=== PATIENT | male | born 1980 | race Caucasian/White ===

== ENCOUNTER 2020-09-02 04:27 | Emergency (ER) | payer MEDICAID ==
--- NOTE | 2020-09-02 05:21 | EDM.PDOC ---
ED HPI GENERAL MEDICAL PROBLEM - General Chief Complaint: Chest Pain Stated Complaint: SOB COUGH AND CONGESTION Time Seen by Provider: 09/02/20 05:01 Source of Information: Reports: Patient History Limitations: Reports: No Limitations - History of Present Illness INITIAL COMMENTS - FREE TEXT/NARRATIVE: This is a 40-year-old female. She is going through position from a male to a female. Apparently about an hour prior to coming to the ER awoke with left- sided sharp chest pain and shortness of breath. She states that she has been actually coughing for the last couple of months producing some green phlegm periodically. Had Covid and got out of quarantine middle of July. Had the cough prior to Covid. Dates that she has had 2 heart attacks in the past however her description of these heart attacks and what was done afterwards is suspect since no heart cath was done and only an echocardiogram was done but they stated that there was a small heart attack and it was because of all the stress that she was going through. She is on Lipitor and nitroglycerin. She left all her medicines in [place] and she will be up here through middle of next month. Denies any fever or chills no myalgias no other acute symptoms though she does have a toothache. Left Chest Pain Score (Numeric/FACES): 7 - Related Data Allergies Allergy/AdvReac Type Severity Reaction Status Date / Time erythromycin base Allergy Swelling Verified 09/02/20 04:41 lamotrigine [From Lamictal] Allergy Hives Verified 09/02/20 04:41 Home Meds: Home Meds Acyclovir 1 tab PO DAILY 09/02/20 [History] Aspirin 1 tab PO DAILY 09/02/20 [History] DULoxetine HCl [Cymbalta] 1 tab PO DAILY 09/02/20 [History] Divalproex Sodium [Depakote] 2 tab PO DAILY 09/02/20 [History] Doxycycline [Vibramycin 25 MG/5 ML Susp] 100 mg PO Q12H #20 tab 09/02/20 [Rx] Finasteride 1 tab PO DAILY 09/02/20 [History] Naproxen 1 tab PO ASDIRECTED PRN 09/02/20 [History] Naproxen 500 mg PO BID #14 tablet 09/02/20 [Rx] Nitroglycerin 1 tab SL ASDIRECTED PRN 09/02/20 [History] Progesterone, Micronized [Progesterone] 1 tab PO DAILY 09/02/20 [History] Spironolactone [Aldactone] 1 tab PO DAILY 09/02/20 [History] atorvaSTATin [Lipitor] 1 tab PO DAILY 09/02/20 [History] estradioL [Estradiol] 1 tab PO DAILY 09/02/20 [History] Past Medical History Cardiovascular History: Reports: High Cholesterol, [place] Respiratory History: Reports: Asthma Gastrointestinal History: Reports: Other (See Below) Other Gastrointestinal History: diverticulitis Oncologic (Cancer) History: Reports: Colon - Infectious Disease History Infectious Disease History: Reports: Novel Coronavirus - Past Surgical History HEENT Surgical History: Reports: Tonsillectomy GI Surgical History: Reports: Appendectomy Social & Family History - Tobacco Use Tobacco Use Status *Q: Current Every Day Tobacco User Years of Tobacco use: 20 Packs/Tins Daily: 0.3 - Caffeine Use Caffeine Use: Reports: Coffee - Recreational Drug Use Recreational Drug Use: Yes Drug Use in Last 12 Months: No ED ROS GENERAL - Review of Systems Review Of Systems: See Below Constitutional: Denies: Fever, Chills HEENT: Reports: Rhinitis Respiratory: Reports: Shortness of Breath, Cough, Sputum Cardiovascular: Reports: Chest Pain Endocrine: Reports: No Symptoms GI/Abdominal: Reports: No Symptoms : Reports: No Symptoms Musculoskeletal: Reports: No Symptoms Skin: Reports: No Symptoms Neurological: Reports: No Symptoms Psychiatric: Reports: No Symptoms Hematologic/Lymphatic: Reports: No Symptoms ED EXAM, GENERAL - Physical Exam Exam: See Below Exam Limited By: No Limitations General Appearance: Alert, WD/WN, No Apparent Distress Eye Exam: Bilateral Eye: Normal Inspection Ears: Normal External Exam, Normal Canal, Normal TMs Nose: Normal Inspection. No: Nasal Drainage, Clear Rhinorrhea Throat/Mouth: Normal Lips, Normal Oropharynx, Normal Voice, No Airway Compromise Head: Normocephalic Neck: Supple Respiratory/Chest: No Respiratory Distress, Lungs Clear, Normal Breath Sounds, Other (Anterior chest is nontender on palpation.) Cardiovascular: Regular Rate, Rhythm, No Murmur, Tachycardia GI/Abdominal: Soft Back Exam: Full Range of Motion Extremities: Normal Inspection, Normal Range of Motion Neurological: Alert, Oriented Psychiatric: Normal Affect, Normal Mood Skin Exam: Warm, Dry Course - Vital Signs Last Recorded V/S: Last Vital Signs Temp 97.5 F 09/02/20 04:36 Pulse 108 H 09/02/20 04:36 Resp 20 09/02/20 04:36 BP 130/77 09/02/20 04:36 Pulse Ox 100 09/02/20 04:36 - Orders/Labs/Meds Orders: Active Orders 24 hr Category Date Time Status Chest 2V [CR] Stat Exams 09/02/20 05:16 Taken Labs: Laboratory Tests 09/02/20 09/02/20 09/02/20 Range/Units 05:41 05:41 05:41 WBC 7.17 (4.23-9.07) K/mm3 RBC 3.78 L (4.63-6.08) M/mm3 Hgb 12.2 L (13.7-17.5) gm/dl Hct 37.8 L (40.1-51.0) % MCV 100.0 H (79.0-92.2) fl MCH 32.3 H (25.7-32.2) pg MCHC 32.3 (32.2-35.5) g/dl RDW Std Deviation 45.1 H (35.1-43.9) fL Plt Count 258 (163-337) K/mm3 MPV 11.3 (9.4-12.3) fl Neut % (Auto) 42.8 (34.0-67.9) % Lymph % (Auto) 36.7 (21.8-53.1) % [place] % (Auto) 9.9 (5.3-12.2) % Eos % (Auto) 10.0 H (0.8-7.0) Baso % (Auto) 0.3 (0.1-1.2) % Neut # (Auto) 3.07 (1.78-5.38) K/mm3 Lymph # (Auto) 2.63 (1.32-3.57) K/mm3 [place] # (Auto) 0.71 (0.30-0.82) K/mm3 Eos # (Auto) 0.72 H (0.04-0.54) K/mm3 Baso # (Auto) 0.02 (0.01-0.08) K/mm3 D-Dimer, Quantitative 0.56 H (0.19-0.50) mg/L Sodium 142 (136-145) mEq/L Potassium 4.1 (3.5-5.1) mEq/L Chloride 106 (98-107) mEq/L Carbon Dioxide 27 (21-32) mEq/L Anion Gap 13.1 (5-15) BUN 24 H (7-18) mg/dL Creatinine 0.9 (0.7-1.3) mg/dL Est Cr Clr Drug Dosing 93.96 mL/min Estimated GFR (MDRD) > 60 (>60) mL/min BUN/Creatinine Ratio 26.7 H (14-18) Glucose 104 (74-106) mg/dL Calcium 9.0 (8.5-10.1) mg/dL Total Bilirubin 0.1 L (0.2-1.0) mg/dL AST 15 (15-37) U/L ALT 20 (16-63) U/L Alkaline Phosphatase 52 (46-116) U/L Troponin I < 0.017 (0.00-0.056) ng/mL Total Protein 6.5 (6.4-8.2) g/dl Albumin 3.1 L (3.4-5.0) g/dl Globulin 3.4 gm/dL Albumin/Globulin Ratio 0.9 L (1-2) - Radiology Interpretation Free Text/Narrative:: Chest x-ray does not show any acute infiltrates or changes. - Re-Assessments/Exams Free Text/Narrative Re-Assessment/Exam: 09/02/20 06:45 Spoke to the patient regarding his blood test results that is cardiac enzyme was essentially normal that his D-dimer was essentially normal so he did not have a heart attack did not have a blood clot and that he has pleurisy from all his chronic coughing and I believe he has a chronic bronchitis which we will treat. I am going to release him from the clinic with a prescription for antibiotics and naproxen. Departure - Departure Time of Disposition: 06:45 Disposition: Home, Self-Care 01 Condition: Good Clinical Impression: Chronic bronchitis, simple, Pleurisy Prescriptions: Naproxen 500 mg PO BID #14 tablet Doxycycline [Vibramycin 25 MG/5 ML Susp] 100 mg PO Q12H #20 tab Instructions: Pleurisy, Chronic Bronchitis, Adult Referrals: PCP,Not In Area [Primary Care Provider] - Forms: ED Department Discharge Additional Instructions: Get the prescriptions filled and start taking the doxycycline twice a day for 10 days, using naproxen twice a day to help with the pleurisy pain, heat to your chest if needed, continue to drink lots of fluids, you may use Robitussin [id number] to help with your cough, I would encourage you to stop smoking because that will contribute to your cough and the bronchitis, just as a recap you did not have a heart attack today nor did you have a pulmonary emboli this is simply an inflammation in your lungs causing sharp pain and it is called toney noe. Return to the ER if needed Sepsis Event Note (ED) - Evaluation Sepsis Screening Result: No Definite Risk - Focused Exam Vital Signs: Vital Signs Temp Pulse Resp BP Pulse Ox 09/02/20 04:36 97.5 F 108 H 20 130/77 100 - My Orders Last 24 Hours: My Active Orders 09/02/20 05:16 Chest 2V [CR] Stat - Assessment/Plan Last 24 Hours: My Active Orders 09/02/20 05:16 Chest 2V [CR] Stat
--- NOTE | 2020-09-02 08:49 | CR ---
Chest: 2 views of the chest were obtained. Comparison: No previous chest imaging is available. Small triangular density noted of the left cardiac apex. Lungs otherwise are clear. Heart size and mediastinum are normal. Bony structures appear within normal limits. Impression: 1. Slight density of the left cardiac apex most likely due to scarring or atelectasis. 2. Nothing acute is otherwise seen. Diagnostic code #2
== END 2020-09-02 07:05 | disposition home or self-care (01) ==
LOC: JD.ED 04:27
DX: J41.0 Simple chronic bronchitis (principal); R09.1 Pleurisy; E78.00 Pure hypercholesterolemia, unspecified; I25.2 Old myocardial infarction; F17.210 Nicotine dependence, cigarettes, uncomplicated; Z86.19 Personal history of other infectious and parasitic diseases; Z88.1 Allergy status to other antibiotic agents; Z88.8 Allergy status to other drugs, medicaments and biological substances; Z79.899 Other long term (current) drug therapy; Z79.82 Long term (current) use of aspirin
CPT/HCPCS: 36415; 71046; 71046-26; 80053; 84484; 85025; 85379; 99285-25

== ENCOUNTER 2020-09-25 07:45 | Emergency (ER) | payer MEDICAID ==
[2020-09-25] MEDS ORDERED: FLU VACC QS2020-21(6MOS UP)/PF 60 MCG/0.5 ML SYRINGE IM ONE (08:30)
[2020-09-25] MEDS ORDERED: Sodium Chloride 0.9% 10 ML Syringe FLUSH PRN (08:36)
[2020-09-25] MEDS ORDERED: Sodium Chloride 0.9% 1,000 ML IV STA (08:36)
[2020-09-25] MEDS ORDERED: HYDROmorphone 0.5 MG/0.5 ML Syringe IVPUSH ONE ×2 (08:38→10:05)
[2020-09-25] MEDS: Sodium Chloride 0.9% 10 ML Syringe FLUSH PRN ×2 (08:55→09:53)
[2020-09-25] MEDS ORDERED: Diatrizoate Meglumine/Diatrizoate Sodium 37% 120 ML Bottle PO ONE (09:05)
[2020-09-25] MEDS ORDERED: Iopamidol 612 MG/ML 50 ML SDV IVPUSH ONE (09:05)
[2020-09-25] MEDS ORDERED: Iopamidol 612 MG/ML 100 ML Bottle IVPUSH ONE (09:05)
--- NOTE | 2020-09-25 10:23 | CT ---
CT abdomen and pelvis Technique: Multiple axial sections were obtained from above the dome of the diaphragm inferiorly through the pubic symphysis. Intravenous and oral contrast was utilized. Delayed images were also obtained to the bladder. Reconstructed coronal and axial images were obtained. Comparison: No prior abdominal imaging is available. Findings: Visualized lung bases show nothing acute. Liver contains no focal parenchymal abnormality. Gallbladder contains no calcified gallstones. Small hiatal hernia is noted. Spleen appears normal. Adrenal glands show no nodule. Pancreas appears within normal limits. Kidneys show symmetric contrast enhancement. Delayed images show contrast within the distal ureters and bladder. Aorta shows no aneurysm. No retroperitoneal adenopathy or mesenteric abnormalities are noted. No pelvic mass or adenopathy is appreciated. No perirectal abnormal densities are seen. Appendix is not visualized. Bone window settings were reviewed which show minimal degenerative change. Impression: 1. Nothing acute is appreciated on CT study of the abdomen and pelvis. Diagnostic code #1
--- NOTE | 2020-09-25 10:32 | EDM.PDOC ---
ED HPI GENERAL MEDICAL PROBLEM - General Chief Complaint: Gastrointestinal Problem Stated Complaint: RECTAL BLEEDING X 2 MONTHS Time Seen by Provider: 09/25/20 08:07 Source of Information: Reports: Patient History Limitations: Reports: No Limitations - History of Present Illness INITIAL COMMENTS - FREE TEXT/NARRATIVE: The patient presents with rectal bleeding and lower abdominal pain. This has been going on for about 2 months. He has a history of colon cancer back in 2007. He did see a doctor in [place] where he was living and he says they did not do a colonoscopy. There has been a little blood but now this morning he woke up with a pool of blood in his bed. He has no nausea, vomiting, fever, chills, cough, congestion, runny nose, chest pain or shortness of breath. He is currently going through transition to become a female and is on estrogen. Onset: Gradual Duration: Week(s): Location: Reports: Abdomen Quality: Reports: Ache Severity: Moderate Improves with: Reports: None Worsens with: Reports: None Associated Symptoms: Reports: No Other Symptoms Lower Abdomen Pain Score (Numeric/FACES): 3 - Related Data Allergies Allergy/AdvReac Type Severity Reaction Status Date / Time erythromycin base Allergy Swelling Verified 09/25/20 08:22 lamotrigine [From Lamictal] Allergy Hives Verified 09/25/20 08:22 Home Meds: Home Meds Acyclovir 200 mg PO DAILY 09/02/20 [History] Aspirin 81 mg PO DAILY 09/02/20 [History] Finasteride 5 mg PO DAILY 09/02/20 [History] Nitroglycerin 1 tab SL ASDIRECTED PRN 09/02/20 [History] Progesterone, Micronized [Progesterone] 200 mg PO DAILY 09/02/20 [History] Spironolactone [Aldactone] 400 mg PO DAILY 09/02/20 [History] atorvaSTATin [Lipitor] 10 mg PO DAILY 09/02/20 [History] estradioL [Estradiol] 10 mcg PO DAILY 09/02/20 [History] Hydrocodone/Acetaminophen [Hydrocodone-Acetamin 5-325 mg] 1 - 2 each PO Q6HR PRN #10 tablet 09/25/20 [Rx] Past Medical History HEENT History: Reports: Impaired Vision Other HEENT History: wears eyeglasses. Cardiovascular History: Reports: High Cholesterol, [place] Respiratory History: Reports: Asthma, Bronchitis, Recurrent Gastrointestinal History: Reports: Diverticulosis, Other (See Below) Other Gastrointestinal History: diverticulitis Neurological History: Reports: Head Trauma Immunologic History: Reports: Immunosuppression Oncologic (Cancer) History: Reports: Colon Dermatologic History: Reports: Other (See Below) Other Dermatologic History: has dry patchy area to R) lower leg. - Infectious Disease History Infectious Disease History: Reports: Chicken Pox, Herpes, Measles, Novel Coronavirus - Past Surgical History HEENT Surgical History: Reports: Adenoidectomy, Tonsillectomy GI Surgical History: Reports: Appendectomy, Colonoscopy, Other (See Below) Other GI Surgeries/Procedures: surgery for colon CA. Social & Family History - Tobacco Use Tobacco Use Status *Q: Current Every Day Tobacco User Years of Tobacco use: 15 Packs/Tins Daily: 0.5 - Caffeine Use Caffeine Use: Reports: Coffee, Energy Drinks, Tea - Recreational Drug Use Recreational Drug Use: No ED ROS GENERAL - Review of Systems Review Of Systems: See Below Constitutional: Reports: No Symptoms HEENT: Reports: No Symptoms Respiratory: Reports: No Symptoms Cardiovascular: Reports: No Symptoms Endocrine: Reports: No Symptoms GI/Abdominal: Reports: Abdominal Pain, Bloody Stool. Denies: Nausea, Vomiting : Reports: No Symptoms Musculoskeletal: Reports: No Symptoms Skin: Reports: No Symptoms Neurological: Reports: No Symptoms ED EXAM, GI/ABD - Physical Exam Exam: See Below Exam Limited By: No Limitations General Appearance: Alert, No Apparent Distress Ears: Normal External Exam Nose: Normal Inspection Head: Atraumatic, Normocephalic Neck: Normal Inspection Respiratory/Chest: No Respiratory Distress, Lungs Clear, Normal Breath Sounds Cardiovascular: Regular Rate, Rhythm, No Edema, No Murmur GI/Abdominal Exam: Soft, No Organomegaly, No Mass, Tender (Mild tenderness to the lower abdomen) Back Exam: Normal Inspection Extremities: Normal Inspection Course - Vital Signs Last Recorded V/S: Last Vital Signs Temp 98.5 F 09/25/20 07:55 Pulse 77 09/25/20 10:20 Resp 16 09/25/20 10:20 BP 112/83 09/25/20 10:20 Pulse Ox 95 09/25/20 10:20 Orthostatic Blood Pressure [ 105/76 Standing] Orthostatic Blood Pressure [ 110/74 Sitting] Orthostatic Blood Pressure [ 103/65 Supine] - Orders/Labs/Meds Orders: Active Orders 24 hr Category Date Time Status Influenza Vaccine Charge [RC] .DISCHARGE Care 09/25/20 08:21 Active Peripheral IV Care [RC] . DIRECTED Care 09/25/20 08:36 Active Sodium Chloride 0.9% [Saline Flush] Med 09/25/20 08:36 Active 10 ml FLUSH ASDIRECTED PRN Sodium Chloride 0.9% [Saline Flush] Med 09/25/20 09:05 Active 10 ml FLUSH ONETIME PRN Peripheral IV Insertion Adult [OM.PC] Stat Oth 09/25/20 08:36 Ordered Medication Orders Sodium Chloride (Saline Flush) 10 ml FLUSH ASDIRECTED PRN PRN Reason: Keep Vein Open Last Admin: 09/25/20 10:15 Dose: 10 ml Documented by: FRITZ Sodium Chloride (Saline Flush) 10 ml FLUSH ONETIME PRN PRN Reason: IV FLUSH Last Admin: 09/25/20 09:53 Dose: 10 ml Documented by: Admin: 09/25/20 08:55 Dose: 10 ml Documented by: FRITZ Labs: Laboratory Tests 09/25/20 09/25/20 09/25/20 Range/Units 08:50 08:50 08:50 WBC 8.93 (4.23-9.07) K/mm3 RBC 4.04 L (4.63-6.08) M/mm3 Hgb 13.1 L (13.7-17.5) gm/dl Hct 40.5 (40.1-51.0) % MCV 100.2 H (79.0-92.2) fl MCH 32.4 H (25.7-32.2) pg MCHC 32.3 (32.2-35.5) g/dl RDW Std Deviation 45.8 H (35.1-43.9) fL Plt Count 252 (163-337) K/mm3 MPV 11.0 (9.4-12.3) fl Neut % (Auto) 60.2 (34.0-67.9) % Lymph % (Auto) 28.6 (21.8-53.1) % [place] % (Auto) 8.5 (5.3-12.2) % Eos % (Auto) 2.5 (0.8-7.0) Baso % (Auto) 0.1 (0.1-1.2) % Neut # (Auto) 5.38 (1.78-5.38) K/mm3 Lymph # (Auto) 2.55 (1.32-3.57) K/mm3 [place] # (Auto) 0.76 (0.30-0.82) K/mm3 Eos # (Auto) 0.22 (0.04-0.54) K/mm3 Baso # (Auto) 0.01 (0.01-0.08) K/mm3 Sodium 143 (136-145) mEq/L Potassium 3.9 (3.5-5.1) mEq/L Chloride 105 (98-107) mEq/L Carbon Dioxide 28 (21-32) mEq/L Anion Gap 13.9 (5-15) BUN 17 (7-18) mg/dL Creatinine 0.9 (0.7-1.3) mg/dL Est Cr Clr Drug Dosing 93.96 mL/min Estimated GFR (MDRD) > 60 (>60) mL/min BUN/Creatinine Ratio 18.9 H (14-18) Glucose 100 (74-106) mg/dL Calcium 9.1 (8.5-10.1) mg/dL Total Bilirubin 0.3 (0.2-1.0) mg/dL AST 18 (15-37) U/L ALT 26 (16-63) U/L Alkaline Phosphatase 49 (46-116) U/L Total Protein 6.8 (6.4-8.2) g/dl Albumin 3.7 (3.4-5.0) g/dl Globulin 3.1 gm/dL Albumin/Globulin Ratio 1.2 (1-2) Lipase 176 (73-393) U/L Urine Color Light yellow (Yellow) Urine Appearance Slt cloudy H (Clear) Urine pH 6.5 (5.0-8.0) Ur Specific [place] 1.020 (1.005-1.030) Urine Protein Negative (Negative) Urine Glucose (UA) Negative (Negative) Urine Ketones Negative (Negative) Urine Occult Blood Negative (Negative) Urine Nitrite Negative (Negative) Urine Bilirubin Negative (Negative) Urine Urobilinogen 0.2 (0.2-1.0) Ur Leukocyte Esterase Negative (Negative) Urine RBC 0-5 (0-5) /hpf Urine WBC 0-5 (0-5) /hpf Ur Squamous Epith Cells 5-10 H (0-5) /hpf Urine Bacteria Few (FEW) /hpf Urine Mucus Few (FEW) /hpf Meds: Medications Generic Name Dose Route Start Last Admin Trade Name Mary PRN Reason Stop Dose Admin Sodium Chloride 10 ml 09/25/20 08:36 09/25/20 10:15 Saline Flush FLUSH 10 ml ASDIRECTED PRN Administration Keep Vein Open Sodium Chloride 10 ml 09/25/20 09:05 09/25/20 09:53 Saline Flush FLUSH 10 ml ONETIME PRN Administration IV FLUSH Discontinued Medications Generic Name Dose Route Start Last Admin Trade Name Mary PRN Reason Stop Dose Admin Diatrizoate Meglum/Diatrizoate Sod 120 ml 09/25/20 09:05 09/25/20 09:53 Gastrografin 37% PO 09/25/20 09:06 90 ml ONETIME ONE Administration Hydromorphone HCl 0.5 mg 09/25/20 08:38 09/25/20 09:09 Dilaudid IVPUSH 09/25/20 08:39 0.5 mg ONETIME ONE Administration Hydromorphone HCl 0.5 mg 09/25/20 10:05 09/25/20 10:13 Dilaudid IVPUSH 09/25/20 10:06 0.5 mg ONETIME ONE Administration Sodium Chloride 1,000 mls @ 1,000 mls/hr 09/25/20 08:36 09/25/20 09:11 Normal Saline IV 09/25/20 09:35 1,000 mls/hr .BOLUS STA Administration Influenza Virus Vaccine 60 mcg 09/25/20 08:30 09/25/20 08:46 Fluzone Quad [id number] Syringe IM 09/25/20 08:31 60 mcg .ONCE ONE Administration Iopamidol 50 ml 09/25/20 09:05 09/25/20 09:53 Isovue-300 (61%) IVPUSH 09/25/20 09:06 50 ml ONETIME ONE Administration Iopamidol 100 ml 09/25/20 09:05 09/25/20 09:53 Isovue-300 (61%) IVPUSH 09/25/20 09:06 100 ml ONETIME ONE Administration - Re-Assessments/Exams Free Text/Narrative Re-Assessment/Exam: 09/25/20 10:32 I ordered an IV NS 1L bolus, dilaudid 0.5mg IV, labs, UA and a CT of his abdomen and pelvis. 09/25/20 10:34 His CBC and CMP look good. His lipase is normal. His UA shows no UTI. The CT of his abdomen and pelvis shows nothing acute. I will discharge him home and have him follow up with Dr Azevedo. He is going to need a colonoscopy. Departure - Departure Time of Disposition: 10:40 Disposition: Home, Self-Care 01 Condition: Good Clinical Impression: Rectal bleeding, Abdominal pain - Discharge Information *PRESCRIPTION DRUG MONITORING PROGRAM REVIEWED*: No *COPY OF PRESCRIPTION DRUG MONITORING REPORT IN PATIENT DON: No Prescriptions: Hydrocodone/Acetaminophen [Hydrocodone-Acetamin 5-325 mg] 1 - 2 each PO Q6HR PRN #10 tablet PRN Reason: Pain Referrals: PCP,None [Primary Care Provider] - Evi Azevedo MD [Physician] - 1 Week Forms: ED Department Discharge, ED Return to Work/School Form Additional Instructions: Drink plenty of fluids. Take the hydrocodone as needed for pain. Follow up with Dr Azevedo and please return if you are worse. Sepsis Event Note (ED) - Evaluation Sepsis Screening Result: No Definite Risk - Focused Exam Vital Signs: Vital Signs Temp Pulse Resp BP Pulse Ox 09/25/20 10:20 77 16 112/83 95 09/25/20 07:55 98.5 F 74 16 115/61 100 - My Orders Last 24 Hours: My Active Orders 09/25/20 08:21 Influenza Vaccine Charge [RC] .DISCHARGE 09/25/20 08:36 Peripheral IV Care [RC] . DIRECTED Sodium Chloride 0.9% [Saline Flush] 10 ml FLUSH ASDIRECTED PRN Peripheral IV Insertion Adult [OM.PC] Stat 09/25/20 09:05 Sodium Chloride 0.9% [Saline Flush] 10 ml FLUSH ONETIME PRN - Assessment/Plan Last 24 Hours: My Active Orders 09/25/20 08:21 Influenza Vaccine Charge [RC] .DISCHARGE 09/25/20 08:36 Peripheral IV Care [RC] . DIRECTED Sodium Chloride 0.9% [Saline Flush] 10 ml FLUSH ASDIRECTED PRN Peripheral IV Insertion Adult [OM.PC] Stat 09/25/20 09:05 Sodium Chloride 0.9% [Saline Flush] 10 ml FLUSH ONETIME PRN
== END 2020-09-25 10:50 | disposition home or self-care (01) ==
LOC: JD.ED 07:45
DX: K62.5 Hemorrhage of anus and rectum (principal); E78.00 Pure hypercholesterolemia, unspecified; I25.2 Old myocardial infarction; J45.909 Unspecified asthma, uncomplicated; Z88.1 Allergy status to other antibiotic agents; Z88.8 Allergy status to other drugs, medicaments and biological substances; Z72.0 Tobacco use; Z79.82 Long term (current) use of aspirin; Z79.899 Other long term (current) drug therapy; Z23 Encounter for immunization
CPT/HCPCS: 36415; 74177; 80053; 81001; 83690; 85025; 90471; 90686; 96374; 96376; 99284; J1170; J7030; Q9963; Q9967; G0008

== ENCOUNTER 2020-09-28 11:16 | Observation (INO) | payer MEDICAID ==
[2020-09-28] MEDS ORDERED: Sodium Chloride 0.9% 10 ML Syringe FLUSH PRN (11:38)
--- NOTE | 2020-09-28 11:46 | EDM.PDOC ---
ED HPI GENERAL MEDICAL PROBLEM - General Chief Complaint: General Stated Complaint: RECTAL BLEEDING Time Seen by Provider: 09/28/20 11:35 Source of Information: Reports: Patient History Limitations: Reports: No Limitations - History of Present Illness INITIAL COMMENTS - FREE TEXT/NARRATIVE: The patient presents from the walk in clinic for rectal bleeding. This has been going on for about 2 months. He was seen here 3 days ago by myself. His Hgb was normal and I did a CT of his abdomen and pelvis and that was normal. He was to follow up with Dr Azevedo the general surgeon build automation engineer. He did not make it to his follow up appointment. He has more bleeding with dark clots at times. He went to the walk in clinic and they sent him over here. The patient does have a history of colon cancer back in 2005. He had a part of his colon removed at that time. He has not had a problems since then. He is currently going through gender reassignment. He is on estrogen. He has no fever, chills, cough, chest pain or shortness of breath. He does have lower abdominal/pelvic pain. He does feel a little lightheaded and he is weak. Onset: Gradual Duration: Week(s): Location: Reports: Abdomen, Pelvis Quality: Reports: Sharp Severity: Moderate Improves with: Reports: None Worsens with: Reports: None Associated Symptoms: Reports: No Other Symptoms Lower Pelvic Pain Score (Numeric/FACES): 9 - Related Data Allergies Allergy/AdvReac Type Severity Reaction Status Date / Time erythromycin base Allergy Swelling Verified 09/28/20 11:25 lamotrigine [From Lamictal] Allergy Hives Verified 09/28/20 11:25 Home Meds: Home Meds Acyclovir 200 mg PO DAILY 09/02/20 [History] Aspirin 81 mg PO DAILY 09/02/20 [History] Finasteride 5 mg PO DAILY 09/02/20 [History] Nitroglycerin 1 tab SL ASDIRECTED PRN 09/02/20 [History] Progesterone, Micronized [Progesterone] 200 mg PO DAILY 09/02/20 [History] Spironolactone [Aldactone] 400 mg PO DAILY 09/02/20 [History] atorvaSTATin [Lipitor] 10 mg PO DAILY 09/02/20 [History] estradioL [Estradiol] 10 mcg PO DAILY 09/02/20 [History] Hydrocodone/Acetaminophen [Hydrocodone-Acetamin 5-325 mg] 1 - 2 each PO Q6HR PRN #10 tablet 09/25/20 [Rx] Past Medical History HEENT History: Reports: Impaired Vision Other HEENT History: wears eyeglasses. Cardiovascular History: Reports: High Cholesterol, [place] Respiratory History: Reports: Asthma, Bronchitis, Recurrent Gastrointestinal History: Reports: Diverticulosis, Other (See Below) Other Gastrointestinal History: diverticulitis Neurological History: Reports: Head Trauma Immunologic History: Reports: Immunosuppression Oncologic (Cancer) History: Reports: Colon Dermatologic History: Reports: Other (See Below) Other Dermatologic History: has dry patchy area to R) lower leg. - Infectious Disease History Infectious Disease History: Reports: Chicken Pox, Herpes, Measles, Novel Coronavirus - Past Surgical History HEENT Surgical History: Reports: Adenoidectomy, Tonsillectomy GI Surgical History: Reports: Appendectomy, Colonoscopy, Other (See Below) Other GI Surgeries/Procedures: surgery for colon CA. Social & Family History - Caffeine Use Caffeine Use: Reports: Coffee, Energy Drinks, Tea ED ROS GENERAL - Review of Systems Review Of Systems: See Below Constitutional: Reports: No Symptoms HEENT: Reports: No Symptoms Respiratory: Reports: No Symptoms Cardiovascular: Reports: Lightheadedness. Denies: Chest Pain Endocrine: Reports: No Symptoms GI/Abdominal: Reports: No Symptoms : Reports: No Symptoms Musculoskeletal: Reports: No Symptoms ED EXAM, GENERAL - Physical Exam Exam: See Below Exam Limited By: No Limitations General Appearance: Alert, No Apparent Distress Ears: Normal External Exam Nose: Normal Inspection Head: Atraumatic, Normocephalic Neck: Normal Inspection Respiratory/Chest: No Respiratory Distress, Lungs Clear, Normal Breath Sounds Cardiovascular: Regular Rate, Rhythm, No Edema, No Murmur GI/Abdominal: Soft, No Organomegaly, No Mass, Tender ( Mild lower abdominal pain per palpation) Course - Vital Signs Last Recorded V/S: Last Vital Signs Temp 98.2 F 09/28/20 11:25 Pulse 82 09/28/20 11:25 Resp 12 09/28/20 11:25 BP 115/84 09/28/20 11:25 Pulse Ox 100 09/28/20 11:25 - Orders/Labs/Meds Orders: Active Orders 24 hr Category Date Time Status Peripheral IV Care [RC] . DIRECTED Care 09/28/20 11:38 Active COMPREHENSIVE METABOLIC PN,CMP [CHEM] Stat Lab 09/28/20 11:51 Received D-DIMER QUANTITATIVE [COAG] Stat Lab 09/28/20 11:51 Results INR,PT,PROTHROMBIN TIME [COAG] Stat Lab 09/28/20 11:51 Results PTT,PARTIAL THROMBOPLSTIN TIME [COAG] Stat Lab 09/28/20 11:51 Results Sodium Chloride 0.9% [Saline Flush] Med 09/28/20 11:38 Active 10 ml FLUSH ASDIRECTED PRN Peripheral IV Insertion Adult [OM.PC] Stat Oth 09/28/20 11:38 Ordered Medication Orders Sodium Chloride (Saline Flush) 10 ml FLUSH ASDIRECTED PRN PRN Reason: Keep Vein Open Last Admin: 09/28/20 11:41 Dose: 10 ml Documented by: LUCÍA Labs: Laboratory Tests 09/28/20 09/28/20 Range/Units 11:51 11:51 WBC 9.68 H (4.23-9.07) K/mm3 RBC 4.17 L (4.63-6.08) M/mm3 Hgb 13.5 L (13.7-17.5) gm/dl Hct 41.3 (40.1-51.0) % MCV 99.0 H (79.0-92.2) fl MCH 32.4 H (25.7-32.2) pg MCHC 32.7 (32.2-35.5) g/dl RDW Std Deviation 45.9 H (35.1-43.9) fL Plt Count 269 (163-337) K/mm3 MPV 10.5 (9.4-12.3) fl Neut % (Auto) 63.4 (34.0-67.9) % Lymph % (Auto) 27.0 (21.8-53.1) % [place] % (Auto) 6.9 (5.3-12.2) % Eos % (Auto) 2.5 (0.8-7.0) Baso % (Auto) 0.1 (0.1-1.2) % Neut # (Auto) 6.14 H (1.78-5.38) K/mm3 Lymph # (Auto) 2.61 (1.32-3.57) K/mm3 [place] # (Auto) 0.67 (0.30-0.82) K/mm3 Eos # (Auto) 0.24 (0.04-0.54) K/mm3 Baso # (Auto) 0.01 (0.01-0.08) K/mm3 PT 10.4 (9.7-12.0) SECONDS INR 0.97 APTT 27.8 (21.7-31.4) SECONDS Meds: Medications Generic Name Dose Route Start Last Admin Trade Name Freq PRN Reason Stop Dose Admin Sodium Chloride 10 ml 09/28/20 11:38 09/28/20 11:41 Saline Flush FLUSH 10 ml ASDIRECTED PRN Administration Keep Vein Open - Re-Assessments/Exams Free Text/Narrative Re-Assessment/Exam: 09/28/20 11:50 I have ordered an IV saline lock and labs. 09/28/20 12:35 His Hgb did come up some to 13.5 from 13.1 a couple days ago. His PT and PTT look good. I feel he needs to be admitted. I called Dr Azevedo and he will admit the patient for observation. I did order LR at 100ml/hr and NPO. I have written bridging orders. Departure - Departure Time of Disposition: 12:45 Disposition: Home, Self-Care 01 Condition: Good Clinical Impression: GI bleed Qualifiers: GI bleed type/associated pathology: unspecified gastrointestinal hemorrhage type Qualified Code(s): K92.2 - Gastrointestinal hemorrhage, unspecified - Discharge Information Referrals: PCP,None [Primary Care Provider] - Forms: ED Department Discharge Sepsis Event Note (ED) - Evaluation Sepsis Screening Result: No Definite Risk - Focused Exam Vital Signs: Vital Signs Temp Pulse Resp BP Pulse Ox 09/28/20 11:25 98.2 F 82 12 115/84 100 - My Orders Last 24 Hours: My Active Orders 09/28/20 11:38 Peripheral IV Care [RC] . DIRECTED Sodium Chloride 0.9% [Saline Flush] 10 ml FLUSH ASDIRECTED PRN Peripheral IV Insertion Adult [OM.PC] Stat 09/28/20 11:51 COMPREHENSIVE METABOLIC PN,CMP [CHEM] Stat D-DIMER QUANTITATIVE [COAG] Stat INR,PT,PROTHROMBIN TIME [COAG] Stat PTT,PARTIAL THROMBOPLSTIN TIME [COAG] Stat - Assessment/Plan Last 24 Hours: My Active Orders 09/28/20 11:38 Peripheral IV Care [RC] . DIRECTED Sodium Chloride 0.9% [Saline Flush] 10 ml FLUSH ASDIRECTED PRN Peripheral IV Insertion Adult [OM.PC] Stat 09/28/20 11:51 COMPREHENSIVE METABOLIC PN,CMP [CHEM] Stat D-DIMER QUANTITATIVE [COAG] Stat INR,PT,PROTHROMBIN TIME [COAG] Stat PTT,PARTIAL THROMBOPLSTIN TIME [COAG] Stat
[2020-09-28] MEDS ORDERED: Lactated Ringers 1,000 ML IV SCH (12:45)
[2020-09-28] MEDS ORDERED: HYDROmorphone 0.5 MG/0.5 ML Syringe IVPUSH ONE (14:18)
[2020-09-28] MEDS ORDERED: Polyethylene Glycol/Electrolytes 4,000 ML Bottle PO SCH (17:12)
--- NOTE | 2020-09-28 17:22 | PCM.HP.2 ---
H&P History of Present Illness - General Date of Service: 09/28/20 Admit Problem/Dx: Admission Diagnosis/Problem Admission Diagnosis/Problem Rectal hemorrhage Source of Information: Patient History Limitations: Reports: No Limitations - History of Present Illness Initial Comments - Free Text/Narative: Patient (who currently undergoing M-F gender transitioning with hormones) has been having rectal bleeding for about 1 yr. But it has gotten worse in the past 3 months. usually dark or red blood per rectum with bowel movements. Last couple of days, she woke up with her pajamas soaked with blood. The presented to the ED yesterday where Hgb was 13.1, CT a/p with Po and IV contrast was normal. Was to follow up with me in clinic but bleeding happened again today associated with some lightheadedness. She came to the Walk-in clinic and was sent to the ED. in the ED Hgb was 13.5. She reports that she had colon cancer s/p partial colectomy in 2005 but does not know which side. She did not have consistent follow up (was in [place] until a few months ago) so did not get a colonoscopy till 2013. She thinks they removed some polyps and was told had diverticulosis. She also has suprapubic abdominal pain that is intermittent not associated with BMs. Onset of Symptoms: Reports: Gradual Duration of Symptoms: Reports: Day(s): (several) Location: Reports: Abdomen Quality: Reports: Sharp, Stabbing Severity: Severe Improves with: Reports: Immobilization Worsens with: Reports: Movement Associated Symptoms: Reports: Nausea/Vomiting Lower Pelvic Pain Score (Numeric/FACES): 9 - Related Data Allergies/Adverse Reactions: Allergies Allergy/AdvReac Type Severity Reaction Status Date / Time erythromycin base Allergy Swelling Verified 09/28/20 11:25 lamotrigine [From Lamictal] Allergy Hives Verified 09/28/20 11:25 Home Medications: Home Meds Acyclovir 200 mg PO DAILY 09/02/20 [History] Aspirin 81 mg PO DAILY 09/02/20 [History] Finasteride 5 mg PO DAILY 09/02/20 [History] Nitroglycerin 1 tab SL ASDIRECTED PRN 09/02/20 [History] Progesterone, Micronized [Progesterone] 200 mg PO DAILY 09/02/20 [History] Spironolactone [Aldactone] 400 mg PO DAILY 09/02/20 [History] atorvaSTATin [Lipitor] 10 mg PO DAILY 09/02/20 [History] estradioL [Estradiol] 12 mg PO DAILY 09/02/20 [History] Hydrocodone/Acetaminophen [Hydrocodone-Acetamin 5-325 mg] 1 - 2 each PO Q6HR PRN #10 tablet 09/25/20 [Rx] Past Medical History HEENT History: Reports: Impaired Vision Other HEENT History: wears eyeglasses. Cardiovascular History: Reports: High Cholesterol, [place] Respiratory History: Reports: Asthma, Bronchitis, Recurrent Gastrointestinal History: Reports: Diverticulosis, Other (See Below) Other Gastrointestinal History: diverticulitis Genitourinary History: Reports: Other (See Below) Other Genitourinary History: Patient states she has hesitancy when urinating. Musculoskeletal History: Reports: Fracture, Other (See Below) Other Musculoskeletal History: Skull fracture when younger. Neurological History: Reports: Head Trauma, Migraines, Seizure, Other (See Below) Other Neuro History: Minor seizures, triggered by stress and flashing lights. Immunologic History: Reports: Immunosuppression Oncologic (Cancer) History: Reports: Colon Dermatologic History: Reports: Other (See Below) Other Dermatologic History: has dry patchy area to R) lower leg. - Infectious Disease History Infectious Disease History: Reports: Chicken Pox, Herpes, Measles, Novel Coronavirus - Past Surgical History HEENT Surgical History: Reports: Adenoidectomy, Tonsillectomy GI Surgical History: Reports: Appendectomy, Colonoscopy, Other (See Below) Other GI Surgeries/Procedures: surgery for colon CA. Social & Family History - Family History Endocrine/Metabolic: Reports: Diabetes, type II Other Endocrine/Metabolic Family History: Father's side. - Tobacco Use Tobacco Use Status *Q: Current Every Day Tobacco User Years of Tobacco use: 25 Packs/Tins Daily: 1 - Caffeine Use Caffeine Use: Reports: Coffee, Energy Drinks, Soda - Recreational Drug Use Recreational Drug Use: No H&P Review of Systems - Review of Systems: Review Of Systems: See Below General: Reports: No Symptoms HEENT: Reports: No Symptoms Pulmonary: Reports: No Symptoms Cardiovascular: Reports: No Symptoms Gastrointestinal: Reports: Abdominal Pain, Hematochezia Genitourinary: Reports: Urgency Musculoskeletal: Reports: No Symptoms Skin: Reports: No Symptoms Psychiatric: Reports: No Symptoms Neurological: Reports: No Symptoms Hematologic/Lymphatic: Reports: No Symptoms Immunologic: Reports: No Symptoms Exam - Exam Exam: See Below - Vital Signs Vital Signs: Last Vital Signs Temp 98.2 F 09/28/20 14:48 Pulse 70 09/28/20 14:48 Resp 18 09/28/20 14:48 BP 108/60 09/28/20 14:48 Pulse Ox 100 09/28/20 14:48 Weight: 87.861 kg - Exam General: Alert, Oriented, Cooperative HEENT: Conjunctiva Clear Lungs: Clear to Auscultation, Normal Respiratory Effort Cardiovascular: Regular Rate, Regular Rhythm, Normal S1, Normal S2 GI/Abdominal Exam: Soft, No Organomegaly, No Distention, No Mass, Tender (suprapubic, LLQ) - Patient Data Lab Results Last 24 hrs: Laboratory Results - last 24 hr 09/28/20 09/28/20 09/28/20 Range/Units 11:51 11:51 11:51 WBC 9.68 H (4.23-9.07) K/mm3 RBC 4.17 L (4.63-6.08) M/mm3 Hgb 13.5 L (13.7-17.5) gm/dl Hct 41.3 (40.1-51.0) % MCV 99.0 H (79.0-92.2) fl MCH 32.4 H (25.7-32.2) pg MCHC 32.7 (32.2-35.5) g/dl RDW Std Deviation 45.9 H (35.1-43.9) fL Plt Count 269 (163-337) K/mm3 MPV 10.5 (9.4-12.3) fl Neut % (Auto) 63.4 (34.0-67.9) % Lymph % (Auto) 27.0 (21.8-53.1) % [place] % (Auto) 6.9 (5.3-12.2) % Eos % (Auto) 2.5 (0.8-7.0) Baso % (Auto) 0.1 (0.1-1.2) % Neut # (Auto) 6.14 H (1.78-5.38) K/mm3 Lymph # (Auto) 2.61 (1.32-3.57) K/mm3 [place] # (Auto) 0.67 (0.30-0.82) K/mm3 Eos # (Auto) 0.24 (0.04-0.54) K/mm3 Baso # (Auto) 0.01 (0.01-0.08) K/mm3 PT 10.4 (9.7-12.0) SECONDS INR 0.97 APTT 27.8 (21.7-31.4) SECONDS D-Dimer, Quantitative 0.68 H (0.19-0.50) mg/L Sodium 141 (136-145) mEq/L Potassium 3.8 (3.5-5.1) mEq/L Chloride 103 (98-107) mEq/L Carbon Dioxide 27 (21-32) mEq/L Anion Gap 14.8 (5-15) BUN 12 (7-18) mg/dL Creatinine 0.8 (0.7-1.3) mg/dL Est Cr Clr Drug Dosing 105.70 mL/min Estimated GFR (MDRD) > 60 (>60) mL/min BUN/Creatinine Ratio 15.0 (14-18) Glucose 95 (74-106) mg/dL Calcium 9.2 (8.5-10.1) mg/dL Total Bilirubin 0.3 (0.2-1.0) mg/dL AST 29 (15-37) U/L ALT 32 (16-63) U/L Alkaline Phosphatase 51 (46-116) U/L Total Protein 7.1 (6.4-8.2) g/dl Albumin 3.7 (3.4-5.0) g/dl Globulin 3.4 gm/dL Albumin/Globulin Ratio 1.1 (1-2) SARS-CoV-2 RNA ([facility]) (NEGATIVE) 09/28/20 Range/Units 13:11 WBC (4.23-9.07) K/mm3 RBC (4.63-6.08) M/mm3 Hgb (13.7-17.5) gm/dl Hct (40.1-51.0) % MCV (79.0-92.2) fl MCH (25.7-32.2) pg MCHC (32.2-35.5) g/dl RDW Std Deviation (35.1-43.9) fL Plt Count (163-337) K/mm3 MPV (9.4-12.3) fl Neut % (Auto) (34.0-67.9) % Lymph % (Auto) (21.8-53.1) % [place] % (Auto) (5.3-12.2) % Eos % (Auto) (0.8-7.0) Baso % (Auto) (0.1-1.2) % Neut # (Auto) (1.78-5.38) K/mm3 Lymph # (Auto) (1.32-3.57) K/mm3 [place] # (Auto) (0.30-0.82) K/mm3 Eos # (Auto) (0.04-0.54) K/mm3 Baso # (Auto) (0.01-0.08) K/mm3 PT (9.7-12.0) SECONDS INR APTT (21.7-31.4) SECONDS D-Dimer, Quantitative (0.19-0.50) mg/L Sodium (136-145) mEq/L Potassium (3.5-5.1) mEq/L Chloride (98-107) mEq/L Carbon Dioxide (21-32) mEq/L Anion Gap (5-15) BUN (7-18) mg/dL Creatinine (0.7-1.3) mg/dL Est Cr Clr Drug Dosing mL/min Estimated GFR (MDRD) (>60) mL/min BUN/Creatinine Ratio (14-18) Glucose (74-106) mg/dL Calcium (8.5-10.1) mg/dL Total Bilirubin (0.2-1.0) mg/dL AST (15-37) U/L ALT (16-63) U/L Alkaline Phosphatase (46-116) U/L Total Protein (6.4-8.2) g/dl Albumin (3.4-5.0) g/dl Globulin gm/dL Albumin/Globulin Ratio (1-2) SARS-CoV-2 RNA ([facility]) Negative (NEGATIVE) Result Diagrams: 09/28/20 11:51 09/28/20 11:51 Sepsis Event Note - Evaluation Sepsis Screening Result: No Definite Risk - Focused Exam Vital Signs: Vital Signs Temp Temp Pulse Pulse Resp BP BP 09/28/20 14:48 98.2 F 70 18 108/60 09/28/20 11:25 98.2 F 82 12 115/84 Pulse Ox 09/28/20 14:48 100 09/28/20 11:25 100 Problem List Initiated/Reviewed/Updated: No Orders Last 24hrs: Active Orders 24 hr Category Date Time Status Patient Status [ADT] Routine ADT 09/28/20 14:04 Active Antiembolic Devices [RC] PER UNIT ROUTINE Care 09/28/20 17:13 Ordered Cardiac Monitoring [RC] INTERMITTENT Care 09/28/20 17:11 Ordered Intake and Output [RC] QSHIFT Care 09/28/20 17:10 Ordered Oxygen Therapy [RC] PRN Care 09/28/20 17:10 Ordered Pulse Oximetry [RC] PRN Care 09/28/20 17:10 Ordered Up ad Trista [RC] ASDIRECTED Care 09/28/20 17:09 Ordered VTE/DVT Education [RC] PER UNIT ROUTINE Care 09/28/20 17:10 Ordered Vital Signs [RC] Q4H Care 09/28/20 17:10 Ordered Clear Liquid Diet [DIET] Diet 09/28/20 Dinner Active NPO After Midnight [Nothing per Oral After Midnight Diet 09/29/20 Breakfast Active Diet] [DIET] BASIC METABOLIC PANEL,BMP [CHEM] AM Lab 09/29/20 05:11 Ordered CBC W/O DIFF,HEMOGRAM [HEME] AM Lab 09/29/20 05:11 Ordered CBC W/O DIFF,HEMOGRAM [HEME] AM Lab 09/30/20 05:11 Ordered MAGNESIUM [CHEM] AM Lab 09/29/20 05:11 Ordered PHOSPHORUS [CHEM] AM Lab 09/29/20 05:11 Ordered HYDROmorphone [Dilaudid] Med 09/28/20 17:04 Active 0.5 mg IVPUSH Q4H PRN KCl/Na Sulf,Bicarb,Cl/PEG 3351 [GoLytely] Med 09/28/20 17:12 Once 4,000 ml PO ONETIME ONE Lactated Ringers [Ringers, Lactated] 1,000 ml Med 09/28/20 17:15 Active IV ASDIRECTED Nicotine [Habitrol] Med 09/28/20 17:15 Ordered 14 mg TRDERM DAILY Ondansetron [Zofran] Med 09/28/20 17:09 Ordered 4 mg IV Q4H PRN Sodium Chloride 0.9% [Saline Flush] Med 09/28/20 11:38 Active 10 ml FLUSH ASDIRECTED PRN Antiembolic Hose [OM.PC] Per Unit Routine Oth 09/28/20 17:11 Ordered Peripheral IV Insertion Adult [OM.PC] Stat Oth 09/28/20 11:38 Ordered Resuscitation Status Routine Resus Stat 09/28/20 17:09 Ordered Medication Orders Hydromorphone HCl (Dilaudid) 0.5 mg IVPUSH Q4H PRN PRN Reason: Pain Lactated Ringer's (Ringers, Lactated) 1,000 mls @ 100 mls/hr IV ASDIRECTED NADIA Nicotine (Habitrol) 14 mg TRDERM DAILY NADIA Ondansetron HCl (Zofran) 4 mg IV Q4H PRN PRN Reason: Nausea/Vomiting Polyethylene Glycol/Electrolytes (Golytely) 4,000 ml PO ONETIME ONE Stop: 09/28/20 17:13 Sodium Chloride (Saline Flush) 10 ml FLUSH ASDIRECTED PRN PRN Reason: Keep Vein Open Last Admin: 09/28/20 11:41 Dose: 10 ml Documented by: LUCÍA Assessment/Plan Comment:: Patient has GI bleeding. Vitals are stable and last Hgb was normal at 13.5. I recommended we proceed with EGD/Colonoscopy for evaluation. We discussed risks, benefits and alternatives. All questions were answered and informed consent was obtained. We will proceed with the procedure tomorrow. Goldeangelo for prep. NPO at 2am. - Mortality Measure Prognosis:: Good
[2020-09-28] MEDS: Nicotine 14 MG/24 Hr Patch TRDERM SCH (17:43)
[2020-09-28] MEDS: HYDROmorphone 0.5 MG/0.5 ML Syringe IVPUSH PRN ×2 (17:44→21:31)
[2020-09-28] MEDS: Lactated Ringers 1,000 ML IV SCH (20:17)
[2020-09-28] MEDS: Ondansetron 4 MG/2 ML SDV IV PRN (21:33)
[2020-09-28] MEDS: Acetaminophen 325 MG Tab PO PRN (23:34)
[2020-09-29] MEDS: Ondansetron 4 MG/2 ML SDV IV PRN (01:24)
[2020-09-29] MEDS: HYDROmorphone 0.5 MG/0.5 ML Syringe IVPUSH PRN ×3 (01:24→11:53)
[2020-09-29] MEDS: Lactated Ringers 1,000 ML IV SCH (06:48)
[2020-09-29] MEDS: Nicotine 14 MG/24 Hr Patch TRDERM SCH (08:37)
--- NOTE | 2020-09-29 08:49 | PCM.PREANE ---
Preanesthetic Assessment - Procedure Proposed Procedure: EGD Colonoscopy - Anesthesia/Transfusion/Family Hx Anesthesia History: Prior Anesthesia Without Reaction Family History of Anesthesia Reaction: No Transfusion History: No Prior Transfusion(s) - Review of Systems General: Fatigue, Malaise Pulmonary: No Symptoms Cardiovascular: No Symptoms, Other (heart attack X 2 2016) Gastrointestinal: Abdominal Pain Neurological: Headache (migraine), Seizure (jul 2020 ) Other: Reports: Easy Bleeding, Easy Bruising, Depression, Anxiety - Physical Assessment NPO Status Date: 09/28/20 NPO Status Time: 00:00 Vital Signs: Last Vital Signs Temp 36.7 C 09/29/20 08:27 Pulse 74 09/29/20 08:27 Resp 28 H 09/29/20 08:27 BP 104/77 09/29/20 08:27 Pulse Ox 93 L 09/29/20 08:27 Height: 1.65 m Weight: 89.539 kg ASA Class: 2 Mental Status: Alert & Oriented x3 Airway Class: Mallampati = 1 Dentition: Reports: Normal Dentition Thyro-Mental Finger Breadths: 3 Mouth Opening Finger Breadths: 3 ROM/Head Extension: Full Lungs: Clear to Auscultation Cardiovascular: Regular Rate, Regular Rhythm - Lab Values: Laboratory Last Values WBC 5.17 K/mm3 (4.23-9.07) 09/29/20 05:50 RBC 3.56 M/mm3 (4.63-6.08) L 09/29/20 05:50 Hgb 11.2 gm/dl (13.7-17.5) L D 09/29/20 05:50 Hct 35.7 % (40.1-51.0) L 09/29/20 05:50 MCV 100.3 fl (79.0-92.2) H 09/29/20 05:50 MCH 31.5 pg (25.7-32.2) 09/29/20 05:50 MCHC 31.4 g/dl (32.2-35.5) L 09/29/20 05:50 RDW Std Deviation 46.1 fL (35.1-43.9) H 09/29/20 05:50 Plt Count 231 K/mm3 (163-337) 09/29/20 05:50 MPV 10.9 fl (9.4-12.3) 09/29/20 05:50 Neut % (Auto) 63.4 % (34.0-67.9) 09/28/20 11:51 Lymph % (Auto) 27.0 % (21.8-53.1) 09/28/20 11:51 Sargent % (Auto) 6.9 % (5.3-12.2) 09/28/20 11:51 Eos % (Auto) 2.5 (0.8-7.0) 09/28/20 11:51 Baso % (Auto) 0.1 % (0.1-1.2) 09/28/20 11:51 Neut # (Auto) 6.14 K/mm3 (1.78-5.38) H 09/28/20 11:51 Lymph # (Auto) 2.61 K/mm3 (1.32-3.57) 09/28/20 11:51 Sargent # (Auto) 0.67 K/mm3 (0.30-0.82) 09/28/20 11:51 Eos # (Auto) 0.24 K/mm3 (0.04-0.54) 09/28/20 11:51 Baso # (Auto) 0.01 K/mm3 (0.01-0.08) 09/28/20 11:51 PT 10.4 SECONDS (9.7-12.0) 09/28/20 11:51 INR 0.97 09/28/20 11:51 APTT 27.8 SECONDS (21.7-31.4) 09/28/20 11:51 D-Dimer, Quantitative 0.68 mg/L (0.19-0.50) H 09/28/20 11:51 Sodium 141 mEq/L (136-145) 09/29/20 05:50 Potassium 4.0 mEq/L (3.5-5.1) 09/29/20 05:50 Chloride 106 mEq/L (98-107) 09/29/20 05:50 Carbon Dioxide 25 mEq/L (21-32) 09/29/20 05:50 Anion Gap 14.0 (5-15) 09/29/20 05:50 BUN 8 mg/dL (7-18) 09/29/20 05:50 Creatinine 0.8 mg/dL (0.7-1.3) 09/29/20 05:50 Est Cr Clr Drug Dosing 105.70 mL/min 09/29/20 05:50 Estimated GFR (MDRD) > 60 mL/min (>60) 09/29/20 05:50 BUN/Creatinine Ratio 10.0 (14-18) L 09/29/20 05:50 Glucose 94 mg/dL (74-106) 09/29/20 05:50 Calcium 8.1 mg/dL (8.5-10.1) L 09/29/20 05:50 Phosphorus 3.4 mg/dL (2.6-4.7) 09/29/20 05:50 Magnesium 1.9 mg/dl (1.8-2.4) 09/29/20 05:50 Total Bilirubin 0.3 mg/dL (0.2-1.0) 09/28/20 11:51 AST 29 U/L (15-37) 09/28/20 11:51 ALT 32 U/L (16-63) 09/28/20 11:51 Alkaline Phosphatase 51 U/L (46-116) 09/28/20 11:51 Total Protein 7.1 g/dl (6.4-8.2) 09/28/20 11:51 Albumin 3.7 g/dl (3.4-5.0) 09/28/20 11:51 Globulin 3.4 gm/dL 09/28/20 11:51 Albumin/Globulin Ratio 1.1 (1-2) 09/28/20 11:51 SARS-CoV-2 RNA ([facility]) Negative (NEGATIVE) 09/28/20 13:11 - Allergies Allergies/Adverse Reactions: Allergies Allergy/AdvReac Type Severity Reaction Status Date / Time erythromycin base Allergy Swelling Verified 09/28/20 11:25 lamotrigine [From Lamictal] Allergy Hives Verified 09/28/20 11:25 - Anesthesia Plan Pre-Op Medication Ordered: None - Acknowledgements Anesthesia Type Planned: MAC Pt an Appropriate Candidate for the Planned Anesthesia: Yes Alternatives and Risks of Anesthesia Discussed w Pt/Guardian: Yes Pt/Guardian Understands and Agrees with Anesthesia Plan: Yes PreAnesthesia Questionnaire HEENT History: Reports: Impaired Vision Other HEENT History: wears eyeglasses. Cardiovascular History: Reports: High Cholesterol, VA Respiratory History: Reports: Asthma, Bronchitis, Recurrent Gastrointestinal History: Reports: Diverticulosis, GERD, Other (See Below) Other Gastrointestinal History: diverticulitis Genitourinary History: Reports: Other (See Below) Other Genitourinary History: Patient states she has hesitancy when urinating. Musculoskeletal History: Reports: Fracture, Other (See Below) Other Musculoskeletal History: Skull fracture when younger. Neurological History: Reports: Head Trauma, Migraines, Seizure, Other (See Below) Other Neuro History: Minor seizures, triggered by stress and flashing lights. Immunologic History: Reports: Immunosuppression Oncologic (Cancer) History: Reports: Colon Dermatologic History: Reports: Other (See Below) Other Dermatologic History: has dry patchy area to R) lower leg. - Infectious Disease History Infectious Disease History: Reports: Chicken Pox, Herpes, Measles, Novel Coronavirus - Past Surgical History HEENT Surgical History: Reports: Adenoidectomy, Tonsillectomy GI Surgical History: Reports: Appendectomy, Colonoscopy, Other (See Below) Other GI Surgeries/Procedures: surgery for colon CA. - SUBSTANCE USE Tobacco Use Status *Q: Current Every Day Tobacco User Tobacco Use Within Last Twelve Months: Cigarettes Second Hand Smoke Exposure: No Days Per Week of Alcohol Use: 0 Number of Drinks Per Day: 0 Total Drinks Per Week: 0 Recreational Drug Use History: No - HOME MEDS Home Medications: Home Meds Acyclovir 200 mg PO DAILY 09/02/20 [History] Aspirin 81 mg PO DAILY 09/02/20 [History] Finasteride 5 mg PO DAILY 09/02/20 [History] Nitroglycerin 1 tab SL ASDIRECTED PRN 09/02/20 [History] Progesterone, Micronized [Progesterone] 200 mg PO DAILY 09/02/20 [History] Spironolactone [Aldactone] 400 mg PO DAILY 09/02/20 [History] atorvaSTATin [Lipitor] 10 mg PO DAILY 09/02/20 [History] estradioL [Estradiol] 12 mg PO DAILY 09/02/20 [History] Hydrocodone/Acetaminophen [Hydrocodone-Acetamin 5-325 mg] 1 - 2 each PO Q6HR PRN #10 tablet 09/25/20 [Rx] - CURRENT (IN HOUSE) MEDS Current Meds: Current Medications Acetaminophen (Tylenol) 650 mg PO Q4H PRN PRN Reason: Pain/Fever Last Admin: 09/28/20 23:34 Dose: 650 mg Documented by: Hydromorphone HCl (Dilaudid) 0.5 mg IVPUSH Q4H PRN PRN Reason: Pain Last Admin: 09/29/20 05:30 Dose: 0.5 mg Documented by: Lactated Ringer's (Ringers, Lactated) 1,000 mls @ 100 mls/hr IV ASDIRECTED [facility] Last Admin: 09/29/20 06:48 Dose: 100 mls/hr Documented by: Miscellaneous Information (Remove Patch) 0 ea TRDERM DAILY [facility] Last Admin: 09/29/20 08:36 Dose: 1 ea Documented by: Nicotine (Habitrol) 14 mg TRDERM DAILY [facility] Last Admin: 09/29/20 08:37 Dose: 14 mg Documented by: Ondansetron HCl (Zofran) 4 mg IV Q4H PRN PRN Reason: Nausea/Vomiting Last Admin: 09/29/20 01:24 Dose: 4 mg Documented by: Sodium Chloride (Saline Flush) 10 ml FLUSH ASDIRECTED PRN PRN Reason: Keep Vein Open Last Admin: 09/28/20 11:41 Dose: 10 ml Documented by: Discontinued Medications Hydromorphone HCl (Dilaudid) 0.5 mg IVPUSH ONETIME ONE Stop: 09/28/20 14:19 Last Admin: 09/28/20 16:50 Dose: Not Given Documented by: Lactated Ringer's (Ringers, Lactated) 1,000 mls @ 100 mls/hr IV ASDIRECTED [facility] Last Admin: 09/28/20 13:56 Dose: 100 mls/hr Documented by: Polyethylene Glycol/Electrolytes (Golytely) 4,000 ml PO ONETIME [facility] Stop: 09/29/20 02:00 Last Admin: 09/28/20 17:44 Dose: 4,000 ml Documented by:
[2020-09-29] MEDS ORDERED: Propofol 200 MG/20 ML SDV ONE ×2 (08:55→09:22)
[2020-09-29] MEDS ORDERED: fentaNYL 100 MCG/2 ML SDV ONE (08:55)
[2020-09-29] MEDS ORDERED: Midazolam 1 MG/ML 2 ML SDV ONE (08:55)
[2020-09-29] MEDS ORDERED: Lidocaine 1% 4 ML ONE (08:57)
[2020-09-29] MEDS ORDERED: Lactated Ringers 1,000 ML ONE (09:01)
--- NOTE | 2020-09-29 09:03 | PCM.PN ---
- General Info Date of Service: 09/29/20 Admission Dx/Problem (Free Text): Admission Diagnosis/Problem Admission Diagnosis/Problem Rectal hemorrhage Subjective Update: Patient had episodes of severe abdominal pain last night as she was prepping for colonoscopy. Passes a little bit of blood. otherwise she was able to complete the entire prep. No fevers or chills Functional Status: Reports: Pain Controlled, Ambulating, Urinating - Review of Systems General: Reports: No Symptoms HEENT: Reports: No Symptoms Pulmonary: Reports: No Symptoms Cardiovascular: Reports: No Symptoms Gastrointestinal: Reports: Abdominal Pain (suprapubic) Genitourinary: Reports: No Symptoms Musculoskeletal: Reports: No Symptoms Skin: Reports: No Symptoms Neurological: Reports: No Symptoms - Patient Data Vitals - Most Recent: Last Vital Signs Temp 98.1 F 09/29/20 08:27 Pulse 74 09/29/20 08:27 Resp 28 H 09/29/20 08:27 BP 104/77 09/29/20 08:27 Pulse Ox 93 L 09/29/20 08:27 Weight - Most Recent: 89.539 kg I&O - Last 24 Hours: Intake & Output 09/28/20 09/29/20 09/29/20 22:59 06:59 14:59 Intake Total 432 3440 Output Total 350 1440 Balance 82 2000 Lab Results Last 24 Hours: Laboratory Results - last 24 hr 09/28/20 09/28/20 09/28/20 Range/Units 11:51 11:51 11:51 WBC 9.68 H (4.23-9.07) K/mm3 RBC 4.17 L (4.63-6.08) M/mm3 Hgb 13.5 L (13.7-17.5) gm/dl Hct 41.3 (40.1-51.0) % MCV 99.0 H (79.0-92.2) fl MCH 32.4 H (25.7-32.2) pg MCHC 32.7 (32.2-35.5) g/dl RDW Std Deviation 45.9 H (35.1-43.9) fL Plt Count 269 (163-337) K/mm3 MPV 10.5 (9.4-12.3) fl Neut % (Auto) 63.4 (34.0-67.9) % Lymph % (Auto) 27.0 (21.8-53.1) % Warren % (Auto) 6.9 (5.3-12.2) % Eos % (Auto) 2.5 (0.8-7.0) Baso % (Auto) 0.1 (0.1-1.2) % Neut # (Auto) 6.14 H (1.78-5.38) K/mm3 Lymph # (Auto) 2.61 (1.32-3.57) K/mm3 Warren # (Auto) 0.67 (0.30-0.82) K/mm3 Eos # (Auto) 0.24 (0.04-0.54) K/mm3 Baso # (Auto) 0.01 (0.01-0.08) K/mm3 PT 10.4 (9.7-12.0) SECONDS INR 0.97 APTT 27.8 (21.7-31.4) SECONDS D-Dimer, Quantitative 0.68 H (0.19-0.50) mg/L Sodium 141 (136-145) mEq/L Potassium 3.8 (3.5-5.1) mEq/L Chloride 103 (98-107) mEq/L Carbon Dioxide 27 (21-32) mEq/L Anion Gap 14.8 (5-15) BUN 12 (7-18) mg/dL Creatinine 0.8 (0.7-1.3) mg/dL Est Cr Clr Drug Dosing 105.70 mL/min Estimated GFR (MDRD) > 60 (>60) mL/min BUN/Creatinine Ratio 15.0 (14-18) Glucose 95 (74-106) mg/dL Calcium 9.2 (8.5-10.1) mg/dL Phosphorus (2.6-4.7) mg/dL Magnesium (1.8-2.4) mg/dl Total Bilirubin 0.3 (0.2-1.0) mg/dL AST 29 (15-37) U/L ALT 32 (16-63) U/L Alkaline Phosphatase 51 (46-116) U/L Total Protein 7.1 (6.4-8.2) g/dl Albumin 3.7 (3.4-5.0) g/dl Globulin 3.4 gm/dL Albumin/Globulin Ratio 1.1 (1-2) SARS-CoV-2 RNA ([facility]) (NEGATIVE) 09/28/20 09/29/20 09/29/20 Range/Units 13:11 05:50 05:50 WBC 5.17 (4.23-9.07) K/mm3 RBC 3.56 L (4.63-6.08) M/mm3 Hgb 11.2 L D (13.7-17.5) gm/dl Hct 35.7 L (40.1-51.0) % MCV 100.3 H (79.0-92.2) fl MCH 31.5 (25.7-32.2) pg MCHC 31.4 L (32.2-35.5) g/dl RDW Std Deviation 46.1 H (35.1-43.9) fL Plt Count 231 (163-337) K/mm3 MPV 10.9 (9.4-12.3) fl Neut % (Auto) (34.0-67.9) % Lymph % (Auto) (21.8-53.1) % Warren % (Auto) (5.3-12.2) % Eos % (Auto) (0.8-7.0) Baso % (Auto) (0.1-1.2) % Neut # (Auto) (1.78-5.38) K/mm3 Lymph # (Auto) (1.32-3.57) K/mm3 Warren # (Auto) (0.30-0.82) K/mm3 Eos # (Auto) (0.04-0.54) K/mm3 Baso # (Auto) (0.01-0.08) K/mm3 PT (9.7-12.0) SECONDS INR APTT (21.7-31.4) SECONDS D-Dimer, Quantitative (0.19-0.50) mg/L Sodium 141 (136-145) mEq/L Potassium 4.0 (3.5-5.1) mEq/L Chloride 106 (98-107) mEq/L Carbon Dioxide 25 (21-32) mEq/L Anion Gap 14.0 (5-15) BUN 8 (7-18) mg/dL Creatinine 0.8 (0.7-1.3) mg/dL Est Cr Clr Drug Dosing 105.70 mL/min Estimated GFR (MDRD) > 60 (>60) mL/min BUN/Creatinine Ratio 10.0 L (14-18) Glucose 94 (74-106) mg/dL Calcium 8.1 L (8.5-10.1) mg/dL Phosphorus 3.4 (2.6-4.7) mg/dL Magnesium 1.9 (1.8-2.4) mg/dl Total Bilirubin (0.2-1.0) mg/dL AST (15-37) U/L ALT (16-63) U/L Alkaline Phosphatase (46-116) U/L Total Protein (6.4-8.2) g/dl Albumin (3.4-5.0) g/dl Globulin gm/dL Albumin/Globulin Ratio (1-2) SARS-CoV-2 RNA ([facility]) Negative (NEGATIVE) Med Orders - Current: Current Medications Acetaminophen (Tylenol) 650 mg PO Q4H PRN PRN Reason: Pain/Fever Last Admin: 09/28/20 23:34 Dose: 650 mg Documented by: Hydromorphone HCl (Dilaudid) 0.5 mg IVPUSH Q4H PRN PRN Reason: Pain Last Admin: 09/29/20 05:30 Dose: 0.5 mg Documented by: Lactated Ringer's (Ringers, Lactated) 1,000 mls @ 100 mls/hr IV ASDIRECTED [facility] Last Admin: 09/29/20 06:48 Dose: 100 mls/hr Documented by: Miscellaneous Information (Remove Patch) 0 ea TRDERM DAILY [facility] Last Admin: 09/29/20 08:36 Dose: 1 ea Documented by: Nicotine (Habitrol) 14 mg TRDERM DAILY [facility] Last Admin: 09/29/20 08:37 Dose: 14 mg Documented by: Ondansetron HCl (Zofran) 4 mg IV Q4H PRN PRN Reason: Nausea/Vomiting Last Admin: 09/29/20 01:24 Dose: 4 mg Documented by: Sodium Chloride (Saline Flush) 10 ml FLUSH ASDIRECTED PRN PRN Reason: Keep Vein Open Last Admin: 09/28/20 11:41 Dose: 10 ml Documented by: Discontinued Medications Fentanyl (Sublimaze) Confirm Administered Dose 100 mcg .ROUTE .STK-MED ONE Stop: 09/29/20 08:56 Hydromorphone HCl (Dilaudid) 0.5 mg IVPUSH ONETIME ONE Stop: 09/28/20 14:19 Last Admin: 09/28/20 16:50 Dose: Not Given Documented by: Lactated Ringer's (Ringers, Lactated) 1,000 mls @ 100 mls/hr IV ASDIRECTED [facility] Last Admin: 09/28/20 13:56 Dose: 100 mls/hr Documented by: Midazolam HCl (Versed 1 Mg/Ml) Confirm Administered Dose 2 mg .ROUTE .STK-MED ONE Stop: 09/29/20 08:56 Polyethylene Glycol/Electrolytes (Golytely) 4,000 ml PO ONETIME NADIA Stop: 09/29/20 02:00 Last Admin: 09/28/20 17:44 Dose: 4,000 ml Documented by: Propofol (Diprivan 20 Ml) Confirm Administered Dose 200 mg .ROUTE .STK-MED ONE Stop: 09/29/20 08:56 - Exam General: Alert, Oriented, Cooperative Lungs: Clear to Auscultation, Normal Respiratory Effort Cardiovascular: Regular Rate, Regular Rhythm GI/Abdominal Exam: Soft, No Organomegaly, No Distention, Tender (suprapubic and LLQ) Sepsis Event Note - Evaluation Sepsis Screening Result: No Definite Risk - Focused Exam Vital Signs: Vital Signs Temp Pulse Resp BP Pulse Ox 09/29/20 08:27 98.1 F 74 28 H 104/77 93 L 09/29/20 08:05 98.2 F 69 16 88/51 L 97 09/29/20 05:29 97.9 F 73 20 91/56 L 93 L 09/29/20 00:50 97.5 F 79 18 100/63 100 - Problem List Review Problem List Initiated/Reviewed/Updated: No - My Orders Last 24 Hours: My Active Orders 09/28/20 Dinner Clear Liquid Diet [DIET] 09/28/20 17:04 HYDROmorphone [Dilaudid] 0.5 mg IVPUSH Q4H PRN 09/28/20 17:09 Up ad Trista [RC] ASDIRECTED Ondansetron [Zofran] 4 mg IV Q4H PRN Resuscitation Status Routine 09/28/20 17:10 Intake and Output [RC] 0400,1600 Oxygen Therapy [RC] PRN Pulse Oximetry [RC] PRN VTE/DVT Education [RC] DAILY Vital Signs [RC] Q4HR 09/28/20 17:11 Antiembolic Hose [OM.PC] Per Unit Routine 09/28/20 17:13 Antiembolic Devices [RC] BID 09/28/20 17:15 Lactated Ringers [Ringers, Lactated] 1,000 ml IV ASDIRECTED Nicotine [Habitrol] 14 mg TRDERM DAILY 09/28/20 23:21 Acetaminophen [TylenoL] 650 mg PO Q4H PRN 09/29/20 Breakfast NPO After Midnight [Nothing per Oral After Midnight Diet] [DIET] 09/29/20 09:00 Remove Patch 0 ea TRDERM DAILY Schedule Procedure [COMM] Routine 09/30/20 05:11 CBC W/O DIFF,HEMOGRAM [HEME] AM - Assessment Assessment:: Patient has GI bleed and abdominal pain. - Plan Plan:: Was able to complete the prep. We will proceed with EGD/Colonoscopy with possible hemorrhoid banding.
--- NOTE | 2020-09-29 10:21 | PCM48HPAN ---
Post Anesthesia Note - EVALUATION WITHIN 48HRS OF ANESTHETIC Vital Signs in Normal Range: Yes Patient Participated in Evaluation: Yes Respiratory Function Stable: Yes Airway Patent: Yes Cardiovascular Function Stable: Yes Hydration Status Stable: Yes Pain Control Satisfactory: Yes Nausea and Vomiting Control Satisfactory: Yes Mental Status Recovered: Yes Vital Signs: Last Vital Signs Temp 36.7 C 09/29/20 08:27 Pulse 74 09/29/20 08:27 Resp 28 H 09/29/20 08:27 BP 104/77 09/29/20 08:27 Pulse Ox 93 L 09/29/20 08:27 - COMMENTS/OBSERVATIONS Free Text/Narrative:: no anesthesia complications noted
--- NOTE | 2020-09-29 10:26 | PCM.SN.2 ---
- Free Text/Narrative Note: EGD/Colonoscopy done: patient has mild gastritis and slight congestion in the colon. No stigmata of bleeding anywhere in the stomach or colon. - will start clears this morning - IVF to 50 - restart some home meds - start PPIs - Ok to ambulate as tolerated - Will recheck Hgb at 1800 - Monitor for bloody BMs
[2020-09-29] MEDS ORDERED: PROGESTERONE MICRONIZED 200 MG PO SCH (10:30)
[2020-09-29] MEDS ORDERED: ESTRADIOL PO SCH (10:30)
[2020-09-29] MEDS: Acetaminophen 325 MG Tab PO PRN ×2 (10:45→18:51)
--- NOTE | 2020-09-29 11:07 | PROC ---
DATE OF OPERATION: 09/29/2020 SURGEON: Evi Azevedo MD PREOPERATIVE DIAGNOSIS: Gastrointestinal bleeding. POSTOPERATIVE DIAGNOSES: 1. Gastritis. 2. Mild esophagitis. 3. Mild patchy mucosal congestion in descending colon sigmoid colon and rectum. OPERATION PERFORMED: 1. Esophagogastroduodenoscopy. 2. Colonoscopy. ESTIMATED BLOOD LOSS: Minimal. ANESTHESIA: Monitored anesthesia care. COMPLICATIONS: None. INDICATION AND CONSENT: Mr. Teran is a 40-year-old male who is transitioning into a female gender. She has been having low-grade rectal bleeding for several years. Recently moved from [place] to [facility] and her rectal bleeding has become worse. She also complains of a lot of suprapubic pain. The patient presented to the emergency department a few days ago for the bleeding. CT scan was done, was normal, and the patient was asked to follow up in clinic because her hemoglobin was 13 at that time. The patient went home after 2 days, bleeding worsened, went to walk-in clinic and was sent to the emergency department due to active bleeding. In the ED, hemoglobin was 13.5, and the patient was admitted for observation and I was consulted. I discussed with the patient and offered the patient EGD and colonoscopy to figure out what is causing the bleeding. We discussed risks, benefits, and alternative and informed consent was obtained. DETAILS OF PROCEDURE: The patient was taken to the procedure room, placed in left lateral decubitus position. Monitored anesthesia was induced. A time-out was performed. Then, we began with an EGD. An Olympus scope was inserted into the mouth, taken all the way to the second portion of duodenum. Duodenum was normal. Duodenal bulb had a tiny area of redness indicating slight inflammation. The antrum had linear areas of congestion without erosions. The stomach body was normal. On retroflexion, there was no hiatal hernia. The cardia had three small areas of erosion indicating once again gastritis without stigmata of any bleeding. The GE junction was edematous indicating mild reflux. There was no injury to distal esophagus. We went back into the stomach, suctioned it out, and removed the scope. Then we started with the colonoscopy. Perianal exam, digital rectal exams were normal. We started the scope and took it all the way to the cecum and terminal ileum. Terminal ileum was intubated and examined. It appeared normal. There was no stigmata or any blood in the stool that was found in the terminal ileum. The appendiceal orifice was photographed. The cecum appeared normal. The ascending colon, transverse were all normal. There were no polyps or any stigmata of bleeding. Descending colon, there was area of mucosa blood congestion. A biopsy with cold forceps was taken. There was also another area of congestion in the sigmoid as well as the rectum that was similarly biopsied. EBL was minimal. There were no polyps and I did not visualize any diverticulosis and on this exam, prep was good, enabling visualization of the entirety of colonic mucosa with minimal irrigation. It was difficult to do retroflexion in the rectum because the patient was not holding enough air. However, with maneuvers such as pressure at the buttocks, we were able to partially visualize the rectum. The patient has grade 2 hemorrhoids that were not irritated and did not appear to be bleeding. Therefore, hemorrhoid banding was not performed. Air was suctioned out from the rectum and the procedure was concluded. From this procedure, the patient has mild gastritis and slight congestion in the colon. There are no stigmata of bleeding anywhere on this exam. The patient to be allowed to return to the floor, monitored in the hospital today for any persistent bleeding and recheck blood level. If the patient does not have any bleeding today, will be allowed to return home later today. MMELIAZAR /[id number] MTDD
--- NOTE | 2020-09-29 14:20 | PCM.SN.2 ---
- Free Text/Narrative Note: I reviewed the CBC. Hgb is stable. Plan - dc IVF - Ok to have reg diet, if no episodes of bloody stool - CBC at 1800. If stable then pt can be discharged. - If discharged, the can follow up with me in 2 weeks.
[2020-09-29] MEDS ORDERED: Finasteride 5 MG Tab PO SCH (17:15)
[2020-09-29] MEDS ORDERED: Simvastatin 10 MG Tab PO SCH (17:15)
[2020-09-29] MEDS ORDERED: Spironolactone 100 MG Tab PO SCH (17:15)
[2020-09-29] MEDS ORDERED: Pantoprazole 40 MG Tab.CR PO ONE (18:45)
--- NOTE | 2020-09-29 19:02 | PCM.DCSUM1 ---
Discharge Summary - Hospital Course Free Text/Narrative:: Patient presented with GI bleeding. EGD/Colonoscopy were performed and no active bleeding found. Patient's Hgb remained stable. She was allowed to return home in stable condition. She will follow up in clinic in 2 weks. Diagnosis: Stroke: No - Discharge Data Discharge Date: 09/29/20 Discharge Disposition: Home, Self-Care 01 Condition: Stable - Referral to Home Health Primary Care Physician: PCP None - Patient Instructions Diet: Heart Healthy Diet Activity: As Tolerated Driving: Do Not Drive (until 24 hrs post anesthesia) Showering/Bathing: May Shower Notify Provider of: Fever, Nausea and/or Vomiting - Discharge Plan *PRESCRIPTION DRUG MONITORING PROGRAM REVIEWED*: Not Applicable *COPY OF PRESCRIPTION DRUG MONITORING REPORT IN PATIENT DON: Not Applicable Prescriptions/Med Rec: Omeprazole 20 mg PO DAILY 90 Days #90 tablet. Home Medications: Home Meds Acyclovir 200 mg PO DAILY 09/02/20 [History] Aspirin 81 mg PO DAILY 09/02/20 [History] Finasteride 5 mg PO DAILY 09/02/20 [History] Nitroglycerin 1 tab SL ASDIRECTED PRN 09/02/20 [History] Progesterone, Micronized [Progesterone] 200 mg PO DAILY 09/02/20 [History] Spironolactone [Aldactone] 400 mg PO DAILY 09/02/20 [History] atorvaSTATin [Lipitor] 10 mg PO DAILY 09/02/20 [History] estradioL [Estradiol] 12 mg PO DAILY 09/02/20 [History] Hydrocodone/Acetaminophen [Hydrocodone-Acetamin 5-325 mg] 1 - 2 each PO Q6HR PRN #10 tablet 09/25/20 [Rx] Omeprazole 20 mg PO DAILY 90 Days #90 tablet. 09/29/20 [Rx] Oxygen Therapy Mode: Room Air Patient Handouts: Steps to Quit Smoking Forms: ED Department Discharge Referrals: PCP,None [Primary Care Provider] - (Follow up with Dr. Azevedo in 2 weeks) - Discharge Summary/Plan Comment DC Time >30 min.: No - General Info Date of Service: 09/29/20 Admission Dx/Problem (Free Text: Admission Diagnosis/Problem Admission Diagnosis/Problem Rectal hemorrhage Subjective Update: No bloody stool, still have lower abdominal pain, tolerating diet, able to ambulate Functional Status: Reports: Pain Controlled, Tolerating Diet, Ambulating, Urinating - Review of Systems General: Reports: No Symptoms HEENT: Reports: No Symptoms Pulmonary: Reports: No Symptoms Cardiovascular: Reports: No Symptoms Gastrointestinal: Reports: Abdominal Pain Genitourinary: Reports: No Symptoms Musculoskeletal: Reports: No Symptoms Skin: Reports: No Symptoms Neurological: Reports: No Symptoms Psychiatric: Reports: No Symptoms - Patient Data Vitals - Most Recent: Last Vital Signs Temp 98.2 F 09/29/20 15:19 Pulse 87 09/29/20 15:19 Resp 18 09/29/20 15:19 BP 100/65 09/29/20 15:19 Pulse Ox 97 09/29/20 15:19 Weight - Most Recent: 89.539 kg I&O - Last 24 hours: Intake & Output 09/29/20 09/29/20 09/29/20 06:59 14:59 22:59 Intake Total 3440 1685 Output Total 1440 650 Balance 2000 1035 Lab Results - Last 24 hrs: Laboratory Results - last 24 hr 09/29/20 09/29/20 09/29/20 Range/Units 05:50 05:50 12:05 WBC 5.17 7.25 (4.23-9.07) K/mm3 RBC 3.56 L 3.59 L (4.63-6.08) M/mm3 Hgb 11.2 L D 11.4 L (13.7-17.5) gm/dl Hct 35.7 L 36.1 L (40.1-51.0) % MCV 100.3 H 100.6 H (79.0-92.2) fl MCH 31.5 31.8 (25.7-32.2) pg MCHC 31.4 L 31.6 L (32.2-35.5) g/dl RDW Std Deviation 46.1 H 46.5 H (35.1-43.9) fL Plt Count 231 214 (163-337) K/mm3 MPV 10.9 10.7 (9.4-12.3) fl Neut % (Auto) 62.8 (34.0-67.9) % Lymph % (Auto) 26.5 (21.8-53.1) % Bailey % (Auto) 6.8 (5.3-12.2) % Eos % (Auto) 3.7 (0.8-7.0) Baso % (Auto) 0.1 (0.1-1.2) % Neut # (Auto) 4.55 (1.78-5.38) K/mm3 Lymph # (Auto) 1.92 (1.32-3.57) K/mm3 Bailey # (Auto) 0.49 (0.30-0.82) K/mm3 Eos # (Auto) 0.27 (0.04-0.54) K/mm3 Baso # (Auto) 0.01 (0.01-0.08) K/mm3 Sodium 141 (136-145) mEq/L Potassium 4.0 (3.5-5.1) mEq/L Chloride 106 (98-107) mEq/L Carbon Dioxide 25 (21-32) mEq/L Anion Gap 14.0 (5-15) BUN 8 (7-18) mg/dL Creatinine 0.8 (0.7-1.3) mg/dL Est Cr Clr Drug Dosing 105.70 mL/min Estimated GFR (MDRD) > 60 (>60) mL/min BUN/Creatinine Ratio 10.0 L (14-18) Glucose 94 (74-106) mg/dL Calcium 8.1 L (8.5-10.1) mg/dL Phosphorus 3.4 (2.6-4.7) mg/dL Magnesium 1.9 (1.8-2.4) mg/dl 09/29/20 Range/Units 18:10 WBC 11.99 H (4.23-9.07) K/mm3 RBC 3.95 L (4.63-6.08) M/mm3 Hgb 12.7 L (13.7-17.5) gm/dl Hct 40.0 L (40.1-51.0) % MCV 101.3 H (79.0-92.2) fl MCH 32.2 (25.7-32.2) pg MCHC 31.8 L (32.2-35.5) g/dl RDW Std Deviation 47.5 H (35.1-43.9) fL Plt Count 236 (163-337) K/mm3 MPV 10.8 (9.4-12.3) fl Neut % (Auto) 68.9 H (34.0-67.9) % Lymph % (Auto) 21.7 L (21.8-53.1) % Bailey % (Auto) 6.6 (5.3-12.2) % Eos % (Auto) 2.5 (0.8-7.0) Baso % (Auto) 0.1 (0.1-1.2) % Neut # (Auto) 8.27 H (1.78-5.38) K/mm3 Lymph # (Auto) 2.60 (1.32-3.57) K/mm3 Bailey # (Auto) 0.79 (0.30-0.82) K/mm3 Eos # (Auto) 0.30 (0.04-0.54) K/mm3 Baso # (Auto) 0.01 (0.01-0.08) K/mm3 Sodium (136-145) mEq/L Potassium (3.5-5.1) mEq/L Chloride (98-107) mEq/L Carbon Dioxide (21-32) mEq/L Anion Gap (5-15) BUN (7-18) mg/dL Creatinine (0.7-1.3) mg/dL Est Cr Clr Drug Dosing mL/min Estimated GFR (MDRD) (>60) mL/min BUN/Creatinine Ratio (14-18) Glucose (74-106) mg/dL Calcium (8.5-10.1) mg/dL Phosphorus (2.6-4.7) mg/dL Magnesium (1.8-2.4) mg/dl Med Orders - Current: Current Medications Acetaminophen (Tylenol) 650 mg PO Q4H PRN PRN Reason: Pain/Fever Last Admin: 09/29/20 18:51 Dose: 650 mg Documented by: Finasteride (Proscar) 5 mg PO DAILY [facility] Last Admin: 09/29/20 17:34 Dose: 5 mg Documented by: Hydromorphone HCl (Dilaudid) 0.5 mg IVPUSH Q4H PRN PRN Reason: Pain Last Admin: 09/29/20 11:53 Dose: 0.5 mg Documented by: Miscellaneous Information (Remove Patch) 0 ea TRDERM DAILY [facility] Last Admin: 09/29/20 08:36 Dose: 1 ea Documented by: Nicotine (Habitrol) 14 mg TRDERM DAILY [facility] Last Admin: 09/29/20 08:37 Dose: 14 mg Documented by: Non-Formulary Medication (Estradiol [Estradiol]) 12 mg PO DAILY [facility] Non-Formulary Medication (Progesterone, Micronized [Progesterone]) 200 mg PO DAILY [facility] Ondansetron HCl (Zofran) 4 mg IV Q4H PRN PRN Reason: Nausea/Vomiting Last Admin: 09/29/20 01:24 Dose: 4 mg Documented by: Pantoprazole Sodium (Protonix) 40 mg PO BEDTIME [facility] Simvastatin (Zocor) 10 mg PO DAILY [facility] Last Admin: 09/29/20 17:34 Dose: 10 mg Documented by: Sodium Chloride (Saline Flush) 10 ml FLUSH ASDIRECTED PRN PRN Reason: Keep Vein Open Last Admin: 09/28/20 11:41 Dose: 10 ml Documented by: Spironolactone (Aldactone) 400 mg PO DAILY [facility] Last Admin: 09/29/20 18:31 Dose: Not Given Documented by: Discontinued Medications Fentanyl (Sublimaze) Confirm Administered Dose 100 mcg .ROUTE .STK-MED ONE Stop: 09/29/20 08:56 Hydromorphone HCl (Dilaudid) 0.5 mg IVPUSH ONETIME ONE Stop: 09/28/20 14:19 Last Admin: 09/28/20 16:50 Dose: Not Given Documented by: Lactated Ringer's (Ringers, Lactated) 1,000 mls @ 100 mls/hr IV ASDIRECTED [facility] Last Admin: 09/28/20 13:56 Dose: 100 mls/hr Documented by: Lactated Ringer's (Ringers, Lactated) 1,000 mls @ 50 mls/hr IV ASDIRECTED [facility] Last Admin: 09/29/20 06:48 Dose: 100 mls/hr Documented by: Lidocaine HCl (Xylocaine-Mpf 1%) Confirm Administered Dose 4 mls @ as directed .ROUTE .STK-MED ONE Stop: 09/29/20 08:58 Lactated Ringer's (Ringers, Lactated) Confirm Administered Dose 1,000 mls @ as directed .ROUTE .STK-MED ONE Stop: 09/29/20 09:02 Midazolam HCl (Versed 1 Mg/Ml) Confirm Administered Dose 2 mg .ROUTE .STK-MED ONE Stop: 09/29/20 08:56 Pantoprazole Sodium (Protonix) 40 mg PO ONETIME ONE Stop: 09/29/20 18:46 Last Admin: 09/29/20 18:49 Dose: 40 mg Documented by: Polyethylene Glycol/Electrolytes (Golytely) 4,000 ml PO ONETIME NADIA Stop: 09/29/20 02:00 Last Admin: 09/28/20 17:44 Dose: 4,000 ml Documented by: Propofol (Diprivan 20 Ml) Confirm Administered Dose 200 mg .ROUTE .STK-MED ONE Stop: 09/29/20 08:56 Propofol (Diprivan 20 Ml) Confirm Administered Dose 200 mg .ROUTE .STK-MED ONE Stop: 09/29/20 09:23 - Exam General: Reports: Alert, Oriented, Cooperative Lungs: Reports: Normal Respiratory Effort Cardiovascular: Reports: Regular Rate, Regular Rhythm GI/Abdominal Exam: Soft, No Organomegaly, No Abnormal Bruit, No Mass, Tender (lower abdomen)
[2020-09-30] MEDS ORDERED: Pantoprazole 40 MG Tab.CR PO SCH (21:00)
== END 2020-09-29 19:35 | disposition home or self-care (01) ==
LOC: JD.ED 11:16 → JD.MS 14:04
PROVIDERS: ADMIT Surgery; ATTEND Surgery
DX: K63.89 Other specified diseases of intestine (principal); K64.9 Unspecified hemorrhoids; K29.70 Gastritis, unspecified, without bleeding; K21.00 Gastro-esophageal reflux disease with esophagitis, without bleeding; E78.00 Pure hypercholesterolemia, unspecified; I25.2 Old myocardial infarction; J45.909 Unspecified asthma, uncomplicated; F17.210 Nicotine dependence, cigarettes, uncomplicated; Z01.812 Encounter for preprocedural laboratory examination; Z20.822 Contact with and (suspected) exposure to COVID-19; Z79.899 Other long term (current) drug therapy; Z79.82 Long term (current) use of aspirin; Z88.8 Allergy status to other drugs, medicaments and biological substances; Z98.890 Other specified postprocedural states
CPT/HCPCS: 36415; 43235; 45380; 80048; 80053; 83735; 84100; 85025; 85027; 85379; 85610; 85730; 87635; 96374; 96375; 96376; 99284; A9270; G0378; J1170; J2001; J2250; J2405; J2704; J3010; J7120; 00813; 99283; U0002